=== PATIENT | female | born 1940 | race Caucasian/White ===

== ENCOUNTER → 2016-07-29 | Outpatient (CLI) | payer OTHER ==
[~2016-07-29] MED LIST: ASPI81TA28 PO; CALC1TAB25 PO; CHOL2000 PO; MELO15TA4 PO; MISC4CAP PO; MULT-506 PO; OMEG10007 PO
[2016-07-29 12:40] LABS: BLOOD UREA NITROGEN 17 mg/dl (7-18); GLUCOSE 98 mg/dl (70-99)
[2016-07-29 12:41] LABS: ALT/SGPT 21 U/L (12-78); BUN/CREATININE RATIO 24.3 (10-20); CALCIUM 8.8 mg/dl (8.5-10.1); CARBON DIOXIDE 25 mmol/L (21-32); CHLORIDE 105 mmol/L (98-107); CHOLESTEROL 219 mg/dl (0-200); POTASSIUM 4.1 mmol/L (3.5-5.1); SODIUM 140 mmol/L (136-145)
[2016-07-29 12:43] LABS: ALB/GLOB RATIO 1.1 (0.9-2); ALKALINE PHOSPHATASE 61 U/L (45-117); AST/SGOT 19 U/L (15-37); CHOLESTEROL/HDL RATIO 2.2; HDL CHOLESTEROL 100 mg/dl; LDL CHOLESTEROL CALCULATED 104 mg/dl; TRIGLYCERIDES 76 mg/dl (0-150); VERY LOW DENSITY LIPOPROT CALC 15 mg/dl
[2016-07-29 13:52] LABS: ESTIMATED AVERAGE GLUCOSE 108 mg/dl; HA1C FLAG Normal (Normal)
== END | disposition home or self-care (01) ==
LOC: C.LABBFT 09:26
PROVIDERS: ATTEND Nurse Practitioner
DX: R73.01 Impaired fasting glucose (principal); E78.00 Pure hypercholesterolemia, unspecified

== ENCOUNTER → 2016-09-09 | Day surgery (SDC) | payer OTHER ==
[2016-08-27 08:49] VITALS: BMI 23.0
[~2016-09-09] VITALS: Ht 154.9 cm; Wt 56.8 kg
[~2016-09-09] MED LIST changes: +EpHEDrine SULFATE 50MG/5ML SYR ONE; +LIDOCAINE HCL 2% 2 ML VIAL (20MG/ML) ONE; +PROPOFOL IV EMULSION 10 MG/ML 20 ML VIAL IV ONE; +SODIUM CHLORIDE 0.9% 500ML 500 ML IV ONE
[2016-09-09 14:10] VITALS: Ht 154.9 cm; Wt 56.8 kg
--- NOTE | 2016-09-09 14:29 | Endo History and Physical ---
History & Physical Date of Service: Sep 09, 2016. Chief Complaint: SCREENING FOR COLON CANCER Referring Physician: FLORINA STYLES History of Present Illness 75 yo CF who presents for screening colonoscopy. Past Surgical History Hx Cardiac Surgery: No Hx Internal Defibrillator: No Hx Pacemaker: No Hx Abdominal Surgery: No Hx of Implantable Prosthesis: No Hx Post-Op Nausea and Vomiting: No Hx Cancer Surgery: No Hx Thoracic Surgery: No Hx Orthopedic: No Hx Urinary Tract Surgery: No Family History None Social History Smoking Status: Former Smoker Hx Substance Use: No Hx Alcohol Use: No Allergies Coded Allergies: No Known Allergies (Verified , 09/09/16) Current Medications Reported Home Medications Medications Dose Route/Sig Max Daily Dose Days Date Category Mobic (Meloxicam) 15 Mg Tab 15 Mg PO DAILY PRN 08/27/16 Reported Aspirin Ec (Aspirin) 81 Mg Tab 81 Mg PO QAM 08/27/16 Reported Vitamin D3 (Cholecalciferol) 2,000 Unit Cap 1 Cap PO QAM 08/27/16 Reported Calcium Magnesium 750 (Calcium W/ Magnesium) 1 Tab Tab 1 Tab PO QAM 08/27/16 Reported [place]-3 (Fish Oil) 1 Ea Cap 1 Cap PO BID 08/27/16 Reported Align (Probiotic Product) 4 Mg Cap 1 Cap PO DAILY PRN 08/27/16 Reported Vital Signs Weight (Kilograms): 56.82 Height (Feet): 5 Height (Inches): 1 Date Time Temp Pulse Resp B/P Pulse Ox O2 Delivery O2 Flow Rate FiO2 09/09/16 14:13 36.5 76 16 176/69 98 Room Air Physical Exam General Appearance: WD/WN, no apparent distress Respiratory/Chest: Auscultation: breath sounds normal Cardiovascular: Heart Auscultation: RRR Abdomen: Bowel Sounds: normal Inspection & Palpation: soft, non-distended, no tenderness, guarding & rebound Assessment and Plan Assessment: 75 yo CF who presents for screening colonoscopy. Plan: Proceed with colonoscopy.
--- NOTE | 2016-09-09 15:00 | GI REPORT ---
Procedure Date: 09/09/2016 2:38 PM Procedure: Colonoscopy Indications: Screening for colorectal malignant neoplasm Medicines: Monitored Anesthesia Care Complications: No immediate complications. Estimated Blood Loss: Estimated blood loss: none. Procedure: Pre-Anesthesia Assessment: - Prior to the procedure, a History and Physical was performed, and patient medications and allergies were reviewed. The patient's tolerance of previous anesthesia was also reviewed. The risks and benefits of the procedure and the sedation options and risks were discussed with the patient. All questions were answered, and informed consent was obtained. Prior Anticoagulants: The patient has taken aspirin, last dose was 10 days prior to procedure. ASA Grade Assessment: II - A patient with mild systemic disease. After reviewing the risks and benefits, the patient was deemed in satisfactory condition to undergo the procedure. After I obtained informed consent, the scope was passed under direct vision. Throughout the procedure, the patient's blood pressure, pulse, and oxygen saturations were monitored continuously. The scope was introduced through the anus and advanced to the terminal ileum. The colonoscopy was performed without difficulty. The patient tolerated the procedure well. The quality of the bowel preparation was good. The terminal ileum, ileocecal valve, appendiceal orifice, and rectum were photographed. Findings: Multiple small-mouthed diverticula were found in the sigmoid colon. Non-bleeding internal hemorrhoids were found during retroflexion. The hemorrhoids were small. Impression: - Diverticulosis in the sigmoid colon. - Non-bleeding internal hemorrhoids. - No specimens collected. Recommendation: - Resume previous diet. - Continue present medications. - No repeat colonoscopy due to age and the absence of advanced adenomas. - Return to primary care physician as previously scheduled. Cj Leal, 09/09/2016 2:59:01 PM This report has been signed electronically. Note Initiated On: 09/09/2016 2:38 PM I attest to the content of the Intraoperative Record and orders documented therein, exceptions below
--- NOTE | 2016-09-09 15:02 | Discharge Instructions ---
Endoscopy Patient Instructions Date / Procedure(s) Performed Sep 09, 2016. Colonoscopy Allergy Information Coded Allergies: No Known Allergies (Verified , 09/09/16) Discharge Date / Findings Sep 09, 2016. Diverticulosis Internal hemorrhoids Medication Instructions Stopped Medication(s): MULTIVITAMIN AST DOSE 08/31/16 OK to resume all medications today as prescribed Reported Home Medications Medications Dose Route/Sig Max Daily Dose Days Date Category Mobic (Meloxicam) 15 Mg Tab 15 Mg PO DAILY PRN 08/27/16 Reported Aspirin Ec (Aspirin) 81 Mg Tab 81 Mg PO QAM 08/27/16 Reported Vitamin D3 (Cholecalciferol) 2,000 Unit Cap 1 Cap PO QAM 08/27/16 Reported Calcium Magnesium 750 (Calcium W/ Magnesium) 1 Tab Tab 1 Tab PO QAM 08/27/16 Reported [place]-3 (Fish Oil) 1 Ea Cap 1 Cap PO BID 08/27/16 Reported Align (Probiotic Product) 4 Mg Cap 1 Cap PO DAILY PRN 08/27/16 Reported Provider Instructions Activity Restrictions - No exercising or heavy lifting for 24 hours. - Do not drink alcohol the day of the procedure. - Do not drive a car or operate machinery until the day after the procedure. - Do not make any important decisions or sign important papers in 24 hours after the procedure. Following Day: - Return to full activity which may include returning to work/school. Diet Start your diet with liquids and light foods (jello, soup, juice, toast). Then eat your usual diet if not nauseated. Treatment For Common After Affects For mild abdominal pain, bloating, or excessive gas: - Rest - Eat lightly - Lie on right side Follow-Up Information Follow-up with FLORINA STYLES as scheduled Anesthesia Information What You Should Know You have had a procedure that required some medicine to reduce anxiety and discomfort. This treatment is called moderate sedation. After receiving the treatment, you may be sleepy, but you will be able to breathe on your own. The effects of the treatment may last for several hours. Follow these instructions along with Activity/Diet recommendations noted above: * Do NOT do anything where dizziness or clumsiness would be dangerous. * Rest quietly at home today, then you can be up and about tomorrow. * Have a responsible person stay with you the rest of today. * You may have had an I.V. today. If so, you may take the dressing off later today. Recommendations Call your doctor if: * Trouble breathing * Continuous vomiting for more than 24 hours * Temperature above 101 degrees * Severe abdominal pain or bloating * Pain not relieved by pain medicine ordered * There is increased drainage or redness from any incision * A large amount of rectal bleeding greater than 2-3 tablespoons. (If you had a polyp/s removed or have hemorrhoids, a small amount of blood - from the rectum is to be expected.) * You have any unanswered questions or concerns. IN THE EVENT OF A SERIOUS EMERGENCY, GO TO THE NEAREST EMERGENCY ROOM Your discharge instructions were prepared by provider Cj Leal. Patient Instructions Signature Page Preeti Gunderson Patient (or Guardian) Signature/Date: I have read and understand the instructions given to me by my caregivers. Caregiver/RN/Doctor Signature/Date: The above-named patient and/or guardian has received patient instructions on this date. + Original Patient Signature Page (only) stays with chart. Please make copy for patient.
--- NOTE | 2016-09-09 15:20 | Anesthesiology Progress Note ---
Anesthesia Post Op Note Date & Time Sep 09, 2016 at 15:20 Vital Signs Pain Intensity: 0 Vital Signs Past 12 Hours Date Time Temp Pulse Resp B/P Pulse Ox O2 Delivery O2 Flow Rate FiO2 09/09/16 15:15 67 18 135/63 97 Room Air 09/09/16 15:00 76 18 99/54 97 Room Air 09/09/16 14:13 36.5 76 16 176/69 98 Room Air Notes Mental Status: alert / awake / arousable, participated in evaluation Pt Amnestic to Procedure: Yes Nausea / Vomiting: adequately controlled Pain: adequately controlled Airway Patency, RR, SpO2: stable & adequate BP & HR: stable & adequate Hydration State: stable & adequate Anesthetic Complications: no major complications apparent
[2016-09-09 15:30] VITALS: BP 134/65; PULSE 67; O2SAT 97
== END | disposition home or self-care (01) ==
LOC: C.GI 13:54
PROVIDERS: ATTEND Internal Medicine
DX: Z12.11 Encounter for screening for malignant neoplasm of colon (principal); K57.30 Diverticulosis of large intestine without perforation or abscess without bleeding; K64.8 Other hemorrhoids; Z87.891 Personal history of nicotine dependence; Z79.82 Long term (current) use of aspirin

== ENCOUNTER → 2017-01-26 | Outpatient (CLI) | payer OTHER ==
[~2017-01-26] MED LIST changes: -EpHEDrine SULFATE 50MG/5ML SYR ONE; -LIDOCAINE HCL 2% 2 ML VIAL (20MG/ML) ONE; -PROPOFOL IV EMULSION 10 MG/ML 20 ML VIAL IV ONE; -SODIUM CHLORIDE 0.9% 500ML 500 ML IV ONE
[2017-01-26 12:51] LABS: BLOOD UREA NITROGEN 13 mg/dl (7-18); BUN/CREATININE RATIO 20.2 (10-20); CARBON DIOXIDE 28 mmol/L (21-32); CHLORIDE 105 mmol/L (98-107); CREATININE 0.65 mg/dl (0.60-1.20); GLUCOSE 99 mg/dl (70-99); POTASSIUM 4.3 mmol/L (3.5-5.1); SODIUM 138 mmol/L (136-145)
== END | disposition home or self-care (01) ==
LOC: C.LABBFT 08:15
PROVIDERS: ATTEND Nurse Practitioner
DX: R73.01 Impaired fasting glucose (principal)

== ENCOUNTER → 2017-03-26 | Outpatient (CLI) | payer OTHER ==
--- NOTE | 2017-03-26 14:55 | MAMMOGRAPHY REPORT ---
BILATERAL DIGITAL SCREENING MAMMOGRAM WITH CAD: 03/26/2017 CLINICAL HISTORY: Routine screening. Patient has no complaints. TECHNIQUE: Current study was also evaluated with a Computer Aided Detection (CAD) system. Bilateral CC and MLO views were obtained. COMPARISON: Comparison is made to exams dated: 03/20/2016 mammogram, 03/15/2015 mammogram, 03/14/2014 m ammogram, 03/13/2013 mammogram, 03/11/2012 mammogram, and 04/02/2011 ultrasound - [facility]. BREAST COMPOSITION: There are scattered areas of fibroglandular density in both breasts. FINDINGS: No suspicious masses, calcifications, or areas of architectural distortion are noted in ei ther breast. There has been no significant interval change compared to prior exams. Scattered bilater al benign-appearing calcifications are not significantly changed. IMPRESSION: ACR BI-RADS CATEGORY 2: BENIGN There is no mammographic evidence of malignancy. A 1 year screening mammogram is recommended. The pa tient will receive written notification of the results. Approximately 10% of breast cancers are not detected with mammography. A negative mammographic report should not delay biopsy if a clinically suggestive mass is present. Mary Mccullough M.D. /:03/26/2017 10:18:39 [employer]in Service Agent: Vanna VILLANUEVA(Jackson)(M), [facility] letter sent: Normal 1/2 BI-RADS Code: ACR BI-RADS Category 2: Benign
== END | disposition home or self-care (01) ==
LOC: C.MAMM 09:51
PROVIDERS: ATTEND Obstetrics & Gynecology
DX: Z12.31 Encounter for screening mammogram for malignant neoplasm of breast (principal)

== ENCOUNTER → 2017-08-05 | Outpatient (CLI) | payer OTHER ==
[~2017-08-05] MED LIST changes: +MELO-84 PO; -MELO15TA4 PO
[2017-08-05 12:58] LABS: HEMATOCRIT 39.8 % (37-47); HEMOGLOBIN 13.3 g/dL (12.0-16.0); MEAN CELL VOLUME 91.9 fL (80-100); MEAN CORPUSCULAR HEMOGLOBIN 30.7 pg (25-34); MEAN CORPUSCULAR HGB CONC 33.4 g/dl (32-36); MEAN PLATELET VOLUME 10.6 fL (7.4-10.4); PLATELET COUNT 258 K/uL (130-400); WHITE BLOOD COUNT 5.31 K/uL (4.8-10.8)
[2017-08-05 13:37] LABS: HEMOGLOBIN A1C 5.5 % (4.5-5.6)
[2017-08-05 14:18] LABS: ALBUMIN 4.1 gm/dl (3.4-5.0); ALT/SGPT 22 U/L (12-78); AST/SGOT 20 U/L (15-37); BLOOD UREA NITROGEN 16 mg/dl (7-18); CALCIUM 9.1 mg/dl (8.5-10.1); CARBON DIOXIDE 27 mmol/L (21-32); CREATININE 0.73 mg/dl (0.60-1.20); GLUCOSE 99 mg/dl (70-99); POTASSIUM 4.1 mmol/L (3.5-5.1); SODIUM 132 mmol/L (136-145)
[2017-08-05 14:20] LABS: ALKALINE PHOSPHATASE 64 U/L (45-117); CHOLESTEROL 219 mg/dl (0-200); LDL CHOLESTEROL CALCULATED 107 mg/dl; TOTAL PROTEIN 7.4 gm/dl (6.4-8.2)
== END | disposition home or self-care (01) ==
LOC: C.LABBFT 08:45
PROVIDERS: ATTEND Nurse Practitioner
DX: R73.01 Impaired fasting glucose (principal); E78.00 Pure hypercholesterolemia, unspecified

== ENCOUNTER → 2018-02-04 | Outpatient (CLI) | payer OTHER ==
[2018-02-04 12:52] LABS: BLOOD UREA NITROGEN 13 mg/dl (7-18); CARBON DIOXIDE 28 mmol/L (21-32); CREATININE 0.64 mg/dl (0.60-1.20); GLUCOSE 89 mg/dl (70-99); POTASSIUM 4.1 mmol/L (3.5-5.1); SODIUM 134 mmol/L (136-145)
== END | disposition home or self-care (01) ==
LOC: C.LABBFT 08:18
PROVIDERS: ATTEND Nurse Practitioner
DX: I10 Essential (primary) hypertension (principal)

== ENCOUNTER 2024-07-01 17:13 | Inpatient (IN) ==
[2024-07-01 17:30] VITALS: TEMP 97.7
--- NOTE | 2024-07-01 17:39 | Emergency Department Note ---
Impression & Plan Acute head trauma, Fall, Closed fracture of right wrist, Left hand fracture, Leukocytosis, Hyponatremia ED Provider Note NAME: SUSAN FAJARDO AGE: 83 SEX: F : 1940 ARRIVES VIA: Ambulance INFORMANT: [Patient] ED PROVIDER(S): [Philipp Lopez MD] CHIEF COMPLAINT: Fall HISTORY OF PRESENT ILLNESS: The patient is an 83-year-old female who prior to arrival was trying to get up the stairs to [facility]. She missed the railing and fell. She injured her head and right wrist and left hand. There was no loss of consciousness. She has no headache or neck pain or back pain, no chest pain. She complains of pain in the left hand and right wrist. The patient has been in baseline health as of late. The patient does take a baby aspirin, no other blood thinning agents. She is unsure of her last tetanus booster, she thinks she is likely due though. PMHx/PSHx/Social Hx: See Below PHYSICAL EXAM: Primary Survey Airway: Intact Breathing: Breath sounds equal bilaterally. No respiratory distress Circulation: Skin warm, capillary refill less than 2 seconds Disability: Pupils equal and reactive to light Motor Function: Moves all extremities. Sensory: No deficits Secondary Survey GEN: Well developed and well-nourished HEAD: Patient has some hematomas/contusions to the forehead and right scalp. Some abrasions are present. There is a tiny pinhole type laceration to the right frontal scalp which had been bleeding earlier but is no longer bleeding. No bony step-offs. No evidence for injury to the nose or jaw. EYES: Pupils round and reactive to light, conjunctiva clear, extraocular movements intact ENT: No fluid in external acoustic canals, nares patent, oropharynx clear NECK: Midline trachea, stiff collar in place HEART: Regular rate and rhythm LUNGS: Clear to auscultation bilaterally CHEST: Chest wall non-tender, no bruising/deformity ABD: No contusions, soft, non-tender, no distention PELVIS: Stable to rock BACK: No step offs or deformities, T-L spine non tender EXT: The patient has a hematoma and swelling to the right wrist. There is a subtle deformity seen. No evidence for right upper extremity neurovascular compromise. The right elbow and right shoulder are nontender. The patient has a hematoma to the dorsal left second MCP. She is tender here. No gross deformity. The left wrist, left elbow and left shoulder are nontender. The patient does have an abrasion/superficial injury to the left dorsal second MCP, this is not an open fracture. The right wrist injury is a closed injury. NEURO: No focal motor deficits, no sensory deficits DIFFERENTIAL DIAGNOSIS: Intracranial bleeding, skull fracture, C-spine injury, extremity fracture, chest and abdominal trauma, among others. EMERGENCY DEPARTMENT PROCEDURES: Splint Care: After the ortho glass splint was placed by the computer drafter, I examined the splint and confirmed proper application/placement/position. Neurovascular status was intact both proximal and distal to the splinted area. C-spine cleared at 2030. MEDICAL DECISION MAKING: There is a moderate leukocytosis, this could be from infection or just the stress of her fall. There was a slight anemia with a hemoglobin of 11.1. There was a normal platelet count. Sodium was low, she carries a history of hyponatremia. There is no renal failure. Brain CT showed no acute bleed or mass effect. C-spine CT showed no acute fracture. Films of the right wrist and left hand were performed. She has a fracture to the left second metacarpal and the right distal radius and ulna. The patient was placed in bilateral splints to stabilize her upper extremity fractures. She was given oral Tylenol, IV morphine, IV Zofran and a 500 cc saline bolus. She received an Adacel booster IM. The patient suffered a fall and has fractured bones in both her upper extremities. The head injury appears superficial. Given her age and now her significant limitations as a result of the splinting, hospitalization was felt warranted. I did speak with orthopedics. They will see the patient in consult. The splints were recommended for now. No reason for emergent orthopedic intervention. I spoke with case management, the on-call hospitalist was consulted. Prior/Outside records/notes reviewed: Today's EMS notes describing her presentation and transport to this hospital. Imaging/x-ray results per my interpretation: Left hand film shows a distal second metacarpal fracture. Right wrist film shows a distal radius and ulnar fracture with some radial fracture deformity/crush injury noted. Chronic Medical/Social conditions affecting care: Advanced age. Care/Management discussed with: Orthopedics-Dr. Zamora. Case management and the on-call hospitalist. Level of care consideration(s): After review of the information above and other included data: --I believe the patient requires escalation of care to admission DISPOSITION: Admission Past Med/Surg History Problem List (Updated 07/01/24 @ 21:37 by Philipp Lopez MD) Hyponatremia (Acute) Leukocytosis (Acute) Left hand fracture (Acute) Closed fracture of right wrist (Acute) Fall (Acute) Acute head trauma (Acute) Effusion, left knee Left knee DJD Hip bursitis, left Right knee DJD Right knee pain Healthcare maintenance Umbilical hernia Eczema (Acute) Encounter for gynecological examination with abnormal finding (Acute) Encounter for screening colonoscopy (Acute) Hypercholesterolemia (Acute) Hypertension (Acute) Impaired fasting glucose (Acute) Internal hemorrhoids (Acute) Leukocytosis (Acute) Osteopenia (Acute) Other specified disorders of bone density and structure, other site (Acute) Postmenopausal status (Acute) Rectocele (Acute) Uterine prolapse (Acute) Medical History Hyponatremia Diverticulosis Surgical History History of laparoscopy History of dilation and curettage Family History Sister Breast cancer Mother Stroke Denies family history of Ovarian cancer Prostate cancer Myocardial infarction Colorectal cancer Social History Smoking Status: Never smoker Tobacco Type: Cigarettes Age Started Using Tobacco: 18; Age Quit Using Tobacco: 26; Second Hand Exposure: No; Do You Dip or Chew Tobacco: No; Hx Alcohol Use: Yes (social) Alcohol Intake Frequency: 2-3 x/Week Hx Substance Use: No Preferred Language: Uzbek Communication Ability: Effective Visual Impairment: Limited Hearing Ability: Normal Senior Facilities Manager Required: No Beliefs That Will Affect Care: None marital status: Current Living Situation: Spouse current occupational status: retired current occupation: used to work at [employer] Feels Safe at Home: Yes Childhood Exposure to Second-Hand Smoke: Yes Diet: regular caffeine: Yes during the past year weight has: remained stable Dental Care, Regularly: Yes Physical Activity Frequency: Does not Exercise Physical Activity Frequency Comment: Irreg. exercise Seatbelt Use: always Sunscreen Use: Yes Assistive Devices: Denture - Lower and Glasses Allergies Allergies Allergy/AdvReac Type Severity Reaction Status Date / Time irbesartan Allergy itching, Verified 12/27/23 09:10 rash Home Meds Home Medications Medication Instructions Recorded Confirmed aspirin 81 mg chewable tablet 81 mg PO DAILY 02/13/19 07/01/24 calcium 315 mg (as 1 tab PO DAILY 02/13/19 07/01/24 citrate)-vitamin D3 6.25 mcg (250 unit) tablet (Citracal + Vitamin D Maximum) magnesium chloride 71.5 mg 71.5 mg PO DAILY 02/13/19 07/01/24 (magnesium chloride) tablet,delayed release (Slow-Mag) multivitamin-ferrous 1 tab PO DAILY 02/13/19 07/01/24 fumarate-folic acid 18 mg-400 mcg tablet (Centrum) Previous Rx's Medication Instructions Recorded amlodipine 5 mg tablet 5 mg PO DAILY #90 tabs 12/27/23 Results & Data (ED) Vital Signs Vital Signs - 24 hr 07/01/24 17:22 07/01/24 17:22 07/01/24 17:36 Temperature 36.5 C 36.5 C Temperature Source Oral Oral Pulse Rate 85 75 Pulse Rate [Apical] 85 Pulse Rhythm [Apical] Regular Respiratory Rate 18 18 Respiratory Effort / Characteristics Non-Labored Spontaneous Non-Labored Spontaneous Respiratory Depth Normal Normal Blood Pressure 174/95 H Blood Pressure [Left Arm] 174/95 H Blood Pressure Mean 121 Blood Pressure Mean [Left Arm] 121 Blood Pressure Position Sitting Blood Pressure Position [Left Arm] Sitting Pulse Oximetry 98 98 Oxygen Delivery Method Room Air Room Air Sepsis Recent Fever Within 48 Hours No Sepsis New/Unexplained Change in Mental Status N/A Sepsis Action Taken by Nursing No Action Required 07/01/24 21:18 Temperature 36.5 C Temperature Source Oral Pulse Rate Pulse Rate [Apical] 55 L Pulse Rhythm [Apical] Respiratory Rate 17 Respiratory Effort / Characteristics Non-Labored Spontaneous Respiratory Depth Normal Blood Pressure Blood Pressure [Left Arm] 151/75 H Blood Pressure Mean Blood Pressure Mean [Left Arm] 100 Blood Pressure Position Blood Pressure Position [Left Arm] Pulse Oximetry 98 Oxygen Delivery Method Room Air Sepsis Recent Fever Within 48 Hours Sepsis New/Unexplained Change in Mental Status Sepsis Action Taken by Detention Medications Current Medication List: was personally reviewed by me Laboratory Data Attestation: I reviewed the patient's lab results. 07/01/24 20:48 07/01/24 20:48 Lab Results 07/01/24 Range/Units 20:48 WBC 16.46 H (4.8-10.8) K/ul RBC 3.71 L (4.20-5.40) M/uL Hgb 11.1 L (12.0-16.0) g/dl Hct 32.7 L (37.0-47.0) % MCV 88.1 (80.0-100.0) fL MCH 29.9 (25.0-34.0) pg MCHC 33.9 (32.0-36.0) g/dL RDW Std Deviation 41.0 (36.4-46.3) fL RDW Coeff of Ginger 12.6 (11.5-14.5) % Plt Count 241 (130-400) K/uL MPV 9.6 (9.4-12.4) fL Sodium 128 L (136-145) mmol/L Potassium 3.9 (3.5-5.1) mmol/L Chloride 96 L (98-107) mmol/L Carbon Dioxide 26 (21-32) mmol/L Anion Gap 6 (3-11) BUN 16 (6-23) mg/dl Creatinine 0.58 L (0.6-1.2) mg/dl Est Cr Clr Drug Dosing 59.0 ml/min eGFR 90.30 BUN/Creatinine Ratio 27.6 H (10-20) Glucose 166 H (70-99(Fasting)) mg/dl Calcium 9.1 (8.6-10.3) mg/dl Administered Medications Discontinued Medications Acetaminophen (Acetaminophen 500 Mg Tab) 1,000 mg PO NOW STA Stop: 07/01/24 19:47 Last Admin: 07/01/24 19:57 Dose: 1,000 mg Documented By: RAMOS Diphtheria/Pertussis/Tetanus Vacc (Diphther/Tetan/Pertus Vaccine (Tdap, Adol/Adult) 0.5ml) 0.5 ml IM .ONCE ONE Stop: 07/01/24 17:34 Last Admin: 07/01/24 18:25 Dose: 0.5 ml Documented By: KOKI Morphine Sulfate (Morphine Sulfate 2 Mg/Ml Carp) 2 mg IV NOW STA Stop: 07/01/24 20:19 Last Admin: 07/01/24 20:47 Dose: 2 mg Documented By: BARB Ondansetron HCl (Ondansetron Inj 2 Mg/Ml 2 Ml Vial) 4 mg IV NOW STA Stop: 07/01/24 20:19 Last Admin: 07/01/24 20:47 Dose: 4 mg Documented By: BARB Imaging Data Radiologist's Impression: Cervical Spine CT 07/01/24 17:32 CT cervical spine without IV contrast History: Pain Comparison: None Technique: Using multidetector thin collimation helical acquisition technique, axial, coronal and sagittal CT images through the cervical spine were obtained without intravenous contrast. Dose reduction techniques were achieved by using automatic exposure control and/or adjustment of mA and/or kV according to patient size and/or use of iterative reconstruction technique. Findings: Straightened cervical lordosis. No acute fracture or subluxation. No prevertebral edema. The bones are osteopenic. Moderate degenerative disc height loss at C3-4 and C4-5. Severe degenerative disc height loss at C5-6 and C6-7. There is overall moderate multilevel degenerative facet changes. Bilateral mature bony fusion, likely degenerative, seen at C4-5. There is chronic grade 1 C4 anterolisthesis related to degenerative facet changes, and there is bony fusion across the posterior aspect of the disc space. Moderate atlantodental degenerative change. No abnormality of the paraspinous soft tissues. Impression: No acute fracture or traumatic subluxation. Electronically signed by Brandyn Mciwlliams 07-01-2024 6:10 PM Hand X-Ray 07/01/24 17:32 Study: Left hand 3 views History: Pain Comparison: None Findings: Fracture through the distal metaphysis of the second metacarpal, which is foreshortened, and demonstrates volar displacement. Alignment is anatomic. Severe degenerative change suggesting osteoarthritis at the first CMC and triscaphe joints. Bone mineralization is decreased. Mild to moderate scattered DIP joint degenerative change due to osteoarthritis.. Impression: Second metacarpal distal metaphyseal fracture. Osteoarthritis Electronically signed by Brandyn Mcwilliams 07-01-2024 5:[address] 07/01/24 17:32 CT head without contrast History: Trauma Comparison: None Technique: Using multidetector thin collimation helical acquisition technique, axial, coronal and sagittal CT images from the skull base to the vertex were obtained without intravenous contrast. Dose reduction techniques were achieved by using automatic exposure control and/or adjustment of mA and/or kV according to patient size and/or use of iterative reconstruction technique. Findings: No intracranial hemorrhage, mass-effect, or midline shift. The ventricles are proportionate to the cerebral sulci. The garcia to white matter differentiation of the cerebral hemispheres is preserved. The basal cisterns are patent. There is moderate cerebral atrophy. Moderate, patchy low-attenuation changes in the white matter, most suggestive of sequelae of chronic small vessel ischemic disease. The visualized paranasal sinuses are clear. Mastoid air cells are clear. Impression: No acute intracranial pathology. Electronically signed by Brandyn Mcwilliams 07-01-2024 6:10 PM Wrist X-Ray 07/01/24 17:32 Study: Right wrist 4 views History: Pain Comparison: None Findings/impression: The bones are osteopenic. There is a transversely oriented fracture through the distal radial metaphysis, which is foreshortened by approximately 1.5 cm, and there is volar displacement of the distal portion by approximately 0.5 cm. There is an acute appearing displaced fracture of the ulnar styloid. Moderate osteoarthritis seen of the first CMC and triscaphe joints. Electronically signed by Brandyn Mcwilliams 07-01-2024 5:57 PM Discharge Plan Visit Data Chief Complaint: Fall Stated Complaint: FALL, LAC TO HEAD ED Provider: Philipp Lopez Discharge Problem: Acute head trauma, Fall, Closed fracture of right wrist, Left hand fracture, Leukocytosis, Hyponatremia Patient Disposition: Admitted As Inpatient Condition: Fair Forms Stand Alone Forms: [facility] Prescriptions Prescriptions: No Action amlodipine 5 mg tablet 5 mg PO DAILY Qty: 90 3RF aspirin 81 mg tablet,chewable 81 mg PO DAILY Centrum 18-400 mg-mcg tablet 1 tab PO DAILY calcium citrate-vitamin D3 [Citracal + D Maximum] 315 mg- 250 unit tablet 1 tab PO DAILY Slow-Mag 71.5 mg tablet,delayed release (DR/EC) 71.5 mg PO DAILY Referrals Referrals: Sera Leos CRNP [Primary Care Provider] - Discharge Problem: Acute head trauma Qualifiers: Encounter type: initial encounter Qualified Code(s): S09.90XA - Unspecified injury of head, initial encounter Fall Qualifiers: Encounter type: initial encounter Qualified Code(s): W19.XXXA - Unspecified fall, initial encounter Closed fracture of right wrist Qualifiers: Encounter type: initial encounter Qualified Code(s): S62.101A - Fracture of unspecified carpal bone, right wrist, initial encounter for closed fracture Left hand fracture Qualifiers: Encounter type: initial encounter Fracture type: closed Qualified Code(s): S 62.92XA - Unspecified fracture of left wrist and hand, initial encounter for closed fracture Leukocytosis Qualifiers: Leukocytosis type: unspecified Qualified Code(s): D72.829 - Elevated white blood cell count, unspecified
--- NOTE | 2024-07-01 18:01 | XRay Report ---
Study: Left hand 3 views History: Pain Comparison: None Findings: Fracture through the distal metaphysis of the second metacarpal, which is foreshortened, and demonstrates volar displacement. Alignment is anatomic. Severe degenerative change suggesting osteoarthritis at the first CMC and triscaphe joints. Bone mineralization is decreased. Mild to moderate scattered DIP joint degenerative change due to osteoarthritis.. Impression: Second metacarpal distal metaphyseal fracture. Osteoarthritis Electronically signed by Brandyn Mcwilliams 07-01-2024 5:57 PM
--- NOTE | 2024-07-01 18:01 | XRay Report ---
Study: Right wrist 4 views History: Pain Comparison: None Findings/impression: The bones are osteopenic. There is a transversely oriented fracture through the distal radial metaphysis, which is foreshortened by approximately 1.5 cm, and there is volar displacement of the distal portion by approximately 0.5 cm. There is an acute appearing displaced fracture of the ulnar styloid. Moderate osteoarthritis seen of the first CMC and triscaphe joints. Electronically signed by Brandyn Mcwilliams 07-01-2024 5:57 PM
--- NOTE | 2024-07-01 18:11 | CT Scan Report ---
CT head without contrast History: Trauma Comparison: None Technique: Using multidetector thin collimation helical acquisition technique, axial, coronal and sagittal CT images from the skull base to the vertex were obtained without intravenous contrast. Dose reduction techniques were achieved by using automatic exposure control and/or adjustment of mA and/or kV according to patient size and/or use of iterative reconstruction technique. Findings: No intracranial hemorrhage, mass-effect, or midline shift. The ventricles are proportionate to the cerebral sulci. The garcia to white matter differentiation of the cerebral hemispheres is preserved. The basal cisterns are patent. There is moderate cerebral atrophy. Moderate, patchy low-attenuation changes in the white matter, most suggestive of sequelae of chronic small vessel ischemic disease. The visualized paranasal sinuses are clear. Mastoid air cells are clear. Impression: No acute intracranial pathology. Electronically signed by Brandyn Mcwilliams 07-01-2024 6:10 PM
--- NOTE | 2024-07-01 18:13 | CT Scan Report ---
CT cervical spine without IV contrast History: Pain Comparison: None Technique: Using multidetector thin collimation helical acquisition technique, axial, coronal and sagittal CT images through the cervical spine were obtained without intravenous contrast. Dose reduction techniques were achieved by using automatic exposure control and/or adjustment of mA and/or kV according to patient size and/or use of iterative reconstruction technique. Findings: Straightened cervical lordosis. No acute fracture or subluxation. No prevertebral edema. The bones are osteopenic. Moderate degenerative disc height loss at C3-4 and C4-5. Severe degenerative disc height loss at C5-6 and C6-7. There is overall moderate multilevel degenerative facet changes. Bilateral mature bony fusion, likely degenerative, seen at C4-5. There is chronic grade 1 C4 anterolisthesis related to degenerative facet changes, and there is bony fusion across the posterior aspect of the disc space. Moderate atlantodental degenerative change. No abnormality of the paraspinous soft tissues. Impression: No acute fracture or traumatic subluxation. Electronically signed by Brandyn Mcwilliams 07-01-2024 6:10 PM
[2024-07-01] MEDS: DIPHTHER/TETAN/PERTUS Vaccine (Tdap, Adol/Adult) 0.5mL IM ONE (18:25)
[2024-07-01] MEDS: ACETAMINOPHEN 500 MG TAB PO STA (19:57)
[2024-07-01] MEDS ORDERED: MoRPHine SULFATE 2 MG/ML CARP IV PRN (20:18)
[2024-07-01] MEDS: ONDANSETRON INJ 2 MG/ML 2 ML VIAL IV STA (20:47)
[2024-07-01] MEDS: MoRPHine SULFATE 2 MG/ML CARP IV STA (20:47)
[2024-07-01 21:17] LABS: Hematocrit (blood only) 32.7 % (37.0-47.0); Hemoglobin 11.1 g/dl (12.0-16.0); Mean Corpuscular Hemoglobin 29.9 pg (25.0-34.0); Mean Corpuscular Hgb Conc 33.9 g/dL (32.0-36.0); Mean Corpuscular Volume 88.1 fL (80.0-100.0); Mean Platelet Volume 9.6 fL (9.4-12.4); Platelet Count 241 K/uL (130-400); RDW Coefficient of Variation 12.6 % (11.5-14.5); Red Blood Count 3.71 M/uL (4.20-5.40); White Blood Count 16.46 K/ul (4.8-10.8)
[2024-07-01 21:19] LABS: BUN Creatinine Ratio 27.6 (10-20); Calcium 9.1 mg/dl (8.6-10.3); Potassium 3.9 mmol/L (3.5-5.1)
[2024-07-01] MEDS: SODIUM CHLORIDE 0.9% 500 ML IV ONE (21:48)
--- NOTE | 2024-07-01 22:38 | History & Physical Report ---
Date of Service July 01, 2024 Assessment & Plan (1) Fall: (2) Closed fracture of right wrist: (3) Left hand fracture: (4) Leukocytosis: (5) Hyponatremia: Plan 83 yo female PMHx HTN admitted s/p fall. #Fall Per history, mechanical in nature Has significant DJD, states that this contributed to fall Fall precautions PT/OT #Right wrist fracture/Left hand fracture Ortho consult Currently splinted Pain control with Tylenol scheduled and Morphine PRN #Leukocytosis Unclear etiology Pt denies feeling ill Suspect reactive in setting of fractures Will check UA #Hyponatremia Pt with history of hyponatremia Check serum osm, urine osm, urine sodium FENGI: heart healthy Code status: full DVT prophylaxis: Lovenox Isolation: none Disposition: med/tele History of Present Illness Primary Care Provider: FLORINA Singh 83 yo female PMHx HTN admitted s/p fall. She was walking up stairs and and missed the railing, tripped and fell on outstretched hands. States that she has significant DJD.She did have a head strike as well. She reports that she does remember the entirety of the event. At the time of exam patient does endorse 8/10 pain. Patient denies CP, SOB, abdominal pain, nausea, vomiting, lightheadedness, dizziness. ED course: Head CT negative for acute process Left Hand XR +second metacarpal metaphyseal fracture Right wrist XR +displaced fracture of ulnar styloid Received 500ml NSS, Zofran, morphine, Tylenol, and tetanus booster CBC with leukocytosis, mild anemia CMP with hyponatremia, pt does have history of hyponatremia b/l splinting of UE - ortho consulted, no acute intervention Allergies Allergy/AdvReac Type Severity Reaction Status Date / Time irbesartan Allergy itching, Verified 12/27/23 09:10 rash Home Medications Medication Instructions Recorded Confirmed Type aspirin 81 mg chewable tablet 81 mg PO DAILY 02/13/19 07/01/24 History calcium 315 mg (as 1 tab PO DAILY 02/13/19 07/01/24 History citrate)-vitamin D3 6.25 mcg (250 unit) tablet (Citracal + Vitamin D Maximum) magnesium chloride 71.5 mg 71.5 mg PO DAILY 02/13/19 07/01/24 History (magnesium chloride) tablet,delayed release (Slow-Mag) multivitamin-ferrous 1 tab PO DAILY 02/13/19 07/01/24 History fumarate-folic acid 18 mg-400 mcg tablet (Centrum) amlodipine 5 mg tablet 5 mg PO DAILY #90 tabs 12/27/23 07/01/24 Rx oxycodone 5 mg tablet 5 mg PO TID PRN pain #10 tabs 07/02/24 Rx sulfamethoxazole 800 1 tab PO BID #6 tabs 07/02/24 Rx mg-trimethoprim 160 mg tablet (Bactrim DS) Past Med/Surg History Problem List (Updated 07/01/24 @ 21:37 by Philipp Lopez MD) Hyponatremia (Acute) Leukocytosis (Acute) Left hand fracture (Acute) Closed fracture of right wrist (Acute) Fall (Acute) Acute head trauma (Acute) Effusion, left knee Left knee DJD Hip bursitis, left Right knee DJD Right knee pain Healthcare maintenance Umbilical hernia Eczema (Acute) Encounter for gynecological examination with abnormal finding (Acute) Encounter for screening colonoscopy (Acute) Hypercholesterolemia (Acute) Hypertension (Acute) Impaired fasting glucose (Acute) Internal hemorrhoids (Acute) Leukocytosis (Acute) Osteopenia (Acute) Other specified disorders of bone density and structure, other site (Acute) Postmenopausal status (Acute) Rectocele (Acute) Uterine prolapse (Acute) Medical History Hyponatremia Diverticulosis Surgical History History of laparoscopy History of dilation and curettage Family History Sister Breast cancer Mother Stroke Denies family history of Ovarian cancer Prostate cancer Myocardial infarction Colorectal cancer Social History Smoking Status: Former smoker Tobacco Type: Cigarettes Age Started Using Tobacco: 18; Age Quit Using Tobacco: 26; Second Hand Exposure: No; Do You Dip or Chew Tobacco: No; Hx Alcohol Use: Yes Alcohol type: wine Alcohol Intake Frequency: 2-3 x/Week Hx Substance Use: No Preferred Language: Iranian Communication Ability: Effective Visual Impairment: Limited Hearing Ability: Normal Bottom Presser Required: No Beliefs That Will Affect Care: None marital status: Current Living Situation: Spouse Current Living Situation Comment: Own home, [address]IE[address], 6 steps to bedroom current occupational status: retired current occupation: used to work at [employer] Other Information That Helps Us Care for You: No Feels Safe at Home: Yes Safety Concerns: Feels Safe At This Time Childhood Exposure to Second-Hand Smoke: Yes Diet: regular caffeine: Yes during the past year weight has: remained stable Dental Care, Regularly: Yes Physical Activity Frequency: Does not Exercise Physical Activity Frequency Comment: Irreg. exercise Seatbelt Use: always Sunscreen Use: Yes Assistive Devices: Glasses Assistive Devices Comment: Glasses broke during fall Review of Systems Review of Systems: reviewed, per HPI Physical Exam Physical Exam: Constitutional: age appropriate, no acute distress HEENT: +bruising and skin tear of R side of head, no active bleeding CV: regular rhythm, no murmur appreciated, extremities well-perfused, no LE edema Resp: CTABL, no wheezes/rales/rhonchi appreciated, no increased work of breathing GI: nondistended MSK: b/l splints in place to R and L wrist/hand Skin: warm, dry, no rash appreciated Neuro: alert, oriented, no focal neurologic deficit appreciated Results & Data Results & Data Vital Signs (Past 12 Hours) Vital Signs Temp Pulse Pulse Resp BP BP Pulse Ox 07/01/24 21:51 59 L 07/01/24 21:18 36.5 C 55 L 17 151/75 H 98 07/01/24 17:36 75 07/01/24 17:22 36.5 C 85 18 174/95 H 98 07/01/24 17:22 36.5 C 85 18 174/95 H 98 O2 Del Method 07/01/24 21:51 07/01/24 21:18 Room Air 07/01/24 17:36 07/01/24 17:22 Room Air 07/01/24 17:22 Room Air Code Status & VTE Plan VTE Prophylaxis Plan VTE Prophylaxis will be ordered: Yes Supervising Physician Co-Signing Physician Notes Attending addendum: I have physically seen this patient, have supervised the medical residents activities, and agree with the H&P unless as otherwise noted. Assessment and Plan: Closed fracture right wrist- Status post mechanical fall from ground-level [facility] Fall precautions PT/OT consult Orthopedic consult Continue with splint provided in the ED Acetaminophen 650 mg by mouth every 6 hours as needed for mild pain or fever Morphine 2 mg IV every 3 hours as needed for moderate to severe pain Hyponatremia- History Check laboratories and address as needed Resident Activity Tracking Resident Involvement: Resident Care Provided Care Provided: Adult Hospital Medicine (1) Fall Encounter type: initial encounter Qualified Code(s): W19.XXXA - Unspecified fall, initial encounter (2) Closed fracture of right wrist Encounter type: initial encounter Qualified Code(s): S62.101A - Fracture of unspecified carpal bone, right wrist, initial encounter for closed fracture (3) Left hand fracture Encounter type: initial encounter Fracture type: closed Qualified Code(s): S62.92XA - Unspecified fracture of left wrist and hand, initial encounter for closed fracture (4) Leukocytosis Leukocytosis type: unspecified Qualified Code(s): D72.829 - Elevated white blood cell count, unspecified
[2024-07-01] MEDS ORDERED: ONDANSETRON INJ 2 MG/ML 2 ML VIAL IV PRN (23:58)
[2024-07-01] MEDS ORDERED: MAGNESIUM HYDROXIDE SUSP 30 ML UDC PO PRN (23:58)
[2024-07-01] MEDS ORDERED: ALUMINUM/MAGNESIUM SUSP 30 ML UDC PO PRN (23:58)
[2024-07-01] MEDS ORDERED: ACETAMINOPHEN 325 MG TAB PO PRN (23:58)
[2024-07-01] MEDS ORDERED: MELATONIN 3 MG TAB PO PRN (23:58)
[2024-07-01] MEDS ORDERED: POLYETHYLENE (MIRALAX) 17 GM PACK PO PRN (23:58)
--- NOTE | 2024-07-02 01:26 | CT Scan Report ---
Exam(s): CT RIGHT WRIST Without Contrast EXAM: CT Right Upper Extremity Without Intravenous Contrast, Wrist CLINICAL HISTORY: Fracture TECHNIQUE: Axial computed tomography images of the right wrist without intravenous contrast. CTDI is 19.67 mGy and DLP is 262.86 mGy-cm. Automated exposure control was utilized for the study. A dose lowering technique was utilized adhering to the principles of ALARA. COMPARISON: No relevant prior studies available. FINDINGS: Bones/joints: Comminuted mildly displaced fracture of the radial epiphysis extending into the articular surface. Small ulnar styloid fracture. Degenerative changes are most prominent of the radiocarpal and first carpometacarpal joints. There is a tiny osseous density adjacent to the pisiform bone could represent a small avulsion fracture. No dislocation. Soft tissues: Nonspecific soft tissue swelling. IMPRESSION: 1. Comminuted mildly displaced fracture of the radial epiphysis extending into the articular surface. 2. Small ulnar styloid fracture. 3. There is a tiny osseous density adjacent to the pisiform bone could represent a small avulsion fracture. 4. Degenerative changes are most prominent of the radiocarpal and first carpometacarpal joints. This favors osteoarthritis. Electronically signed by: Jasmyne Barrientos MD 07/02/24 01:24 AM
[2024-07-02 04:11] LABS: Basophils # (auto) 0.02 K/uL (0.00-0.20); Basophils % (auto) 0.2 %; Hematocrit (blood only) 28.6 % (37.0-47.0); Hemoglobin 9.5 g/dl (12.0-16.0); Immature Granulocytes # (auto) 0.03 K/uL (0.01-0.20); Immature Granulocytes % (auto) 0.3 %; Lymphocytes # (auto) 1.53 K/uL (1.20-3.40); Lymphocytes % (auto) 17.7 %; Mean Corpuscular Hemoglobin 29.8 pg (25.0-34.0); Mean Corpuscular Hgb Conc 33.2 g/dL (32.0-36.0); Mean Corpuscular Volume 89.7 fL (80.0-100.0); Mean Platelet Volume 9.4 fL (9.4-12.4); Monocytes # (auto) 0.56 K/uL (0.11-0.59); Monocytes % (auto) 6.5 %; Neutrophils # (auto) 6.49 K/uL (1.40-6.50); Neutrophils % (auto) 75.3 %; Platelet Count 200 K/uL (130-400); RDW Coefficient of Variation 12.7 % (11.5-14.5); RDW Standard Deviation 41.7 fL (36.4-46.3); Red Blood Count 3.19 M/uL (4.20-5.40); White Blood Count 8.63 K/ul (4.8-10.8)
[2024-07-02 04:29] LABS: Albumin Globulin Ratio 1.8 (0.9-2); Albumin Level 3.7 gm/dl (3.4-5.0); BUN Creatinine Ratio 26.9 (10-20); Bilirubin,Total 0.6 mg/dl (0.2-1.0); Calcium 8.3 mg/dl (8.6-10.3); Creatinine Clr Calc Pharmacy 65.8 ml/min; Globulin 2.1 gm/dl (2.5-4.0); Magnesium 2.1 mg/dl (1.7-2.4); Potassium 4.7 mmol/L (3.5-5.1); Total Protein 5.8 gm/dl (6.0-8.3)
--- NOTE | 2024-07-02 08:15 | Hospitalist Progress Note ---
Date of Service July 02, 2024 Assessment & Plan (1) Fall: (2) Closed fracture of right wrist: (3) Left hand fracture: (4) Leukocytosis: (5) Hyponatremia: Plan 83 yo female PMHx HTN admitted s/p fall with right wrist ulnar styloid fractue and left hand Second metacarpal distal metaphyseal fracture. Ruling out metabolic encephalopathy contributing to fall #Right wrist fracture/Left hand fracture Ortho consult Currently splinted Pain control with Tylenol scheduled and Morphine PRN #Leukocytosis ? metabolic encephalopahty Will check UA #Hyponatremia Pt with history of chronic hyponatremia, fluid restrict Check serum osm, urine osm, urine sodium #chronic hypertension, continue amlodipine Code status: full DVT prophylaxis: Lovenox Admission and Anticipated Discharge Date Admission Date: July 01, 2024 Results & Data Results & Data Vital Signs (Past 12 Hours) Vital Signs Temp Pulse Pulse Resp BP BP Pulse Ox 07/02/24 07:33 80 07/02/24 03:33 64 12 96 07/02/24 03:09 66 16 98 07/02/24 03:00 126/70 07/02/24 03:00 126/70 07/02/24 02:57 63 12 99 07/02/24 02:51 60 13 98 07/02/24 02:00 61 15 99 07/02/24 02:00 125/59 L 07/02/24 02:00 125/59 L 07/02/24 02:00 125/59 L 07/02/24 02:00 125/59 L 07/02/24 02:00 125/59 L 07/02/24 01:33 63 15 97 07/02/24 01:09 65 16 97 07/02/24 01:00 124/62 07/02/24 01:00 124/62 07/02/24 01:00 07/02/24 00:57 65 12 96 07/02/24 00:30 69 23 97 07/02/24 00:26 65 07/02/24 00:19 145/68 H 07/02/24 00:19 145/68 H 07/02/24 00:06 71 21 145/68 H 100 07/01/24 23:06 64 12 123/55 L 98 07/01/24 22:06 64 23 124/56 L 100 07/01/24 21:51 61 21 98 07/01/24 21:51 59 L 07/01/24 21:44 131/62 07/01/24 21:44 131/62 07/01/24 21:42 16 96 07/01/24 21:18 97.7 F 55 L 17 151/75 H 98 07/01/24 21:12 55 L 20 07/01/24 20:52 151/75 H 07/01/24 20:52 151/75 H 07/01/24 20:51 71 16 07/01/24 20:36 71 15 07/01/24 20:18 69 13 O2 Del Method 07/02/24 07:33 07/02/24 03:33 07/02/24 03:09 07/02/24 03:00 07/02/24 03:00 07/02/24 02:57 07/02/24 02:51 07/02/24 02:00 07/02/24 02:00 07/02/24 02:00 07/02/24 02:00 07/02/24 02:00 07/02/24 02:00 07/02/24 01:33 07/02/24 01:09 07/02/24 01:00 07/02/24 01:00 07/02/24 01:00 Room Air 07/02/24 00:57 07/02/24 00:30 07/02/24 00:26 07/02/24 00:19 07/02/24 00:19 07/02/24 00:06 07/01/24 23:06 07/01/24 22:06 07/01/24 21:51 07/01/24 21:51 07/01/24 21:44 07/01/24 21:44 07/01/24 21:42 07/01/24 21:18 Room Air 07/01/24 21:12 07/01/24 20:52 07/01/24 20:52 07/01/24 20:51 07/01/24 20:36 07/01/24 20:18 PG Care Time/CCT Total # of Minutes Spent Total Time Spent with Patient: Total time spent is greater than 50% in coordination of care (as documented) at patient's floor/unit and/or counseling patient: Coding Diagnoses Fall W19.XXXA Encounter type: initial encounter Closed fracture of right wrist S62.101A Encounter type: initial encounter Left hand fracture S62.92XA Encounter type: initial encounter Fracture type: closed Leukocytosis D72.829 Leukocytosis type: unspecified Hyponatremia E87.1 (1) Fall Encounter type: initial encounter Qualified Code(s): W19.XXXA - Unspecified fall, initial encounter (2) Closed fracture of right wrist Encounter type: initial encounter Qualified Code(s): S62.101A - Fracture of unspecified carpal bone, right wrist, initial encounter for closed fracture (3) Left hand fracture Encounter type: initial encounter Fracture type: closed Qualified Code(s): S62.92XA - Unspecified fracture of left wrist and hand, initial encounter for closed fracture (4) Leukocytosis Leukocytosis type: unspecified Qualified Code(s): D72.829 - Elevated white blood cell count, unspecified
[2024-07-02] MEDS: ENOXAPARIN INJ 40 MG/0.4 ML SYR SQ SCH (08:37)
[2024-07-02] MEDS: CEROVITE ADV FORMULA TAB PO SCH (08:37)
[2024-07-02] MEDS: ASPIRIN 81 MG ECTAB PO SCH (08:37)
[2024-07-02] MEDS: amLODIPine BESYLATE 5 MG TAB PO SCH (08:37)
[2024-07-02] MEDS: MAGNESIUM CHLORIDE W/CALCIUM 64MG DELAYED REL TAB PO SCH (08:38)
[2024-07-02] MEDS: CALCIUM 600MG + VIT D 400 IU TAB PO SCH (08:38)
[2024-07-02 10:53] LABS: Appearance Urine Turbid (Clear); Bacteria Urine Automated 4+ (None Seen); Bilirubin Urine Negative (Negative); Blood Urine Trace (Negative); Color Urine Yellow; Epithelial Cell Urine Auto 0-2 /hpf (0-2); Glucose Urine UA Negative (Negative); Ketones Urine Trace (Negative); Leukocyte Esterase Urine 3+ (Negative); Nitrite Urine Positive (Negative); Protein Urine Negative (Negative); RBC Urine Automated 0-2 /hpf (0-2); Specific Gravity Urine 1.011 (1.000-1.030); Urobilinogen Urine Negative (Negative); WBC Urine Automated >50 /hpf (0-5); pH Urine 6.5 (4.5-7.5)
[2024-07-02 12:09] VITALS: RESP 12; O2SAT 98
[2024-07-02 12:37] VITALS: BP 151/75; PULSE 55
--- NOTE | 2024-07-02 16:56 | Discharge Summary ---
Discharge Summary Date of Service July 02, 2024 Principal Dx & Hospital Course #1 = Principal Diagnosis (1) Fall: (2) Closed fracture of right wrist: (3) Left hand fracture: (4) Leukocytosis: (5) Hyponatremia: Plan 83 yo female PMHx HTN admitted s/p fall with right wrist distal radius and ulnar styloid fracture and left hand Second metacarpal distal metaphyseal fracture. treating possible uti poa with bactrim #Right wrist fracture/Left hand fracture discussed with ortho, feels can care for her at home, will have office follow up Currently splinted Pain control with Tylenol scheduled and oxycodone prn #Leukocytosis ? metabolic encephalopahty bactrim ds bid x 3 days, culture pending at discharge #Hyponatremia Pt with history of chronic hyponatremia, fluid restrict #chronic hypertension, continue amlodipine Code status: full Notes For Next Care Provider follow up on urine culture follow up on Dr mora referral Admission HPI Per Admitting Provider 83 yo female PMHx HTN admitted s/p fall. She was walking up stairs and and missed the railing, tripped and fell on outstretched hands. States that she has significant DJD.She did have a head strike as well. She reports that she does remember the entirety of the event. At the time of exam patient does endorse 8/10 pain. Patient denies CP, SOB, abdominal pain, nausea, vomiting, lightheadedness, dizziness. ED course: Head CT negative for acute process Left Hand XR +second metacarpal metaphyseal fracture Right wrist XR +displaced fracture of ulnar styloid Received 500ml NSS, Zofran, morphine, Tylenol, and tetanus booster CBC with leukocytosis, mild anemia CMP with hyponatremia, pt does have history of hyponatremia b/l splinting of UE - ortho consulted, no acute intervention Discharge Exam Constitutional pleasant, A&Ox3 bilateral wrist hand splints cardiac is regular lungs are clear Discharge Plan Discharge Items Patient Disposition: Home - Self-Care Reason For Visit: FALL Discharge Diagnosis: right radial fracture, right ulna styloid fracture left second metacarpel fracture abnormal urine anaylsis Condition on Discharge: Fair Activity: Per Instructions section Activity Comment: guard from additional falls, Non-emergency contact: Primary Care Provider and Surgeon Call non-emergency contact if: your symptoms worsen Follow-up/Referrals: Sera Leos CRNP [Primary Care Provider] - Yousif Mora MD [Physician] - Diet: Regular Addtl Attending Provider Instructions: please wear your splints until you see orthopedics in follow up use tylenol for pain and if severe use low dose oxycodone elevated your hands when lying and you may use ice to try to reduce swelling if you can position to affected area Addtl Systems Admin Provider Instructions: Post-concussion syndrome occurs after a blow to the head or body. Common symptoms are changes in the ability to concentrate, think, remember, or solve problems. Symptoms, which may include headaches, personality changes, and dizziness, may be related to stress from the events that caused the injury. Follow-up care is a wyatt part of your treatment and safety.Be sure to make and go to all appointments, and call your doctor or nurse advice line ([place]in most [place] and [facility]) if you are having problems. It's also a good idea to know your test results and keep a list of the medicines you take. How can you care for yourself at home? Pain Rest is the best treatment for post-concussion syndrome.Do not drive if you have taken a prescription pain medicine.Rest in a quiet, dark room until your headache is gone. Close your eyes and try to relax or go to sleep. Do not watch TV or read.Put a cold, moist cloth or cold pack on the painful area for 10 to 20 minutes at a time. Put a thin cloth between the cold pack and your skin.Have someone gently massage your neck and shoulders.Take your medicines exactly as prescribed. Call your doctor or nurse advice line if you think you are having a problem with your medicine. You will get more details on the specific medicines your doctor prescribes. Stress Try to reduce stress. Some ways to do this include: Taking slow, deep breaths. Soaking in a warm bath. Listening to soothing music. Having a massage or back rub. Drinking a warm, non-alcoholic, non-caffeinated beverage.Get enough sleep.Eat a healthy, balanced diet. A balanced diet includes whole grains, dairy, fruits and vegetables, and protein. Eat a variety of foods from each of those groups so you get all the nutrients you need.Avoid alcohol and illegal drugs.Try relaxation exercises, such as breathing and muscle relaxation exercises.Talk to your doctor about counselling. It may help you deal with stress from your injury. When should you call for help? Watch closely for changes in your health, and be sure to contact your doctor or nurse advice line if: You do not get better as expected.Your symptoms, such as headaches, trouble concentrating, or changes in mood, get worse. Pending Studies at Discharge: No Stand-Alone Forms: My [facility], Smoking Cessation Medications and DC Order Prescriptions: New sulfamethoxazole-trimethoprim [Bactrim DS] 800-160 mg tablet 1 tab PO BID Qty: 6 0RF oxycodone 5 mg tablet 5 mg PO TID PRN (Reason: pain) Qty: 10 0RF Continued amlodipine 5 mg tablet 5 mg PO DAILY Qty: 90 3RF aspirin 81 mg tablet,chewable 81 mg PO DAILY Centrum 18-400 mg-mcg tablet 1 tab PO DAILY calcium citrate-vitamin D3 [Citracal + D Maximum] 315 mg- 250 unit tablet 1 tab PO DAILY Slow-Mag 71.5 mg tablet,delayed release (DR/EC) 71.5 mg PO DAILY Discharge Orders: Discharge Order (Routine); Ordered 07/02/24 Ordered By: Sekou Rincon Admission Data Admit Date/Time: 07/01/24 22:25 Attending Provider: Sekou Rincon Admit Provider: Prabhjot Zimmerman Primary Care Provider: Sera Leos Other Providers: Sumanth Ocampo Other Interventions: Discharge Summary Assessment (RN) Last Done: 07/02/24 12:28 Hospital Stay Data Consultations 07/01/24 20:19 ED Decision to Admit Stat 07/01/24 22:46 Consult Orthopedic Surgery Stat Diagnostic Imagining Performed 07/01/24 17:32 CT cervical spine wo con Stat CT head/brain wo con Stat 07/01/24 19:10 CT wrist RT wo con Stat Pending Results Patient Have Any Pending Studies at Discharge: No Discharge Instructions Given to Patient (Per Discharging Provider) please wear your splints until you see orthopedics in follow up use tylenol for pain and if severe use low dose oxycodone elevated your hands when lying and you may use ice to try to reduce swelling if you can position to affected area Total Time Total Time Spent Total Time Spent (In Minutes): It required greater than 30 minutes to prepare this patient for discharge. Coding Level of Care Code 13732 INP/OBS DISCH >30 MIN Diagnoses Fall W19.XXXA Encounter type: initial encounter Closed fracture of right wrist S62.101A Encounter type: initial encounter Left hand fracture S62.92XA Encounter type: initial encounter Fracture type: closed Leukocytosis D72.829 Leukocytosis type: unspecified Hyponatremia E87.1
--- NOTE | 2024-07-02 21:44 | Billing Data ---
Date of Service July 02, 2024 Coding Level of Care Code 75254 INT INP/OBS CARE
== END 2024-07-02 12:35 | disposition home or self-care (01) | DRG 562 ==
LOC: ED 17:13 → EDINP 22:25 → SUATTDRO 22:25 → EDINP 23:59